=== PATIENT | female | born 1995 | race Caucasian/White ===

== ENCOUNTER 2016-11-03 01:52 | Emergency (ER) | payer BC ==
[2016-11-03] MEDS ORDERED: ONDANSETRON 4 MG/2 ML VIAL IVPB ONE (02:31)
[2016-11-03] MEDS ORDERED: ACETAMINOPHEN 325 MG TABLET (FP) PO ONE (02:31)
[2016-11-03] MEDS ORDERED: FAMOTIDINE 20 MG/50 ML IVPB 50 ML IVPB ONE ×2 (02:31→03:00)
[2016-11-03] MEDS ORDERED: SODIUM CHLORIDE 1,000 ML IV STA (02:31)
[2016-11-03] MEDS ORDERED: MAG HYDROX/AL HYDROX/SIMETH 30 ML UNIT-DOSE CUP PO ONE (02:31)
[2016-11-03 02:39] VITALS: BP 120/98; PULSE 83; TEMP 99.2; BMI 38.4
[2016-11-03] MEDS ORDERED: ONDANSETRON 4 MG/2 ML VIAL ONE (03:00)
[2016-11-03] MEDS ORDERED: ACETAMINOPHEN 325 MG TABLET (FP) ONE (03:00)
[2016-11-03] MEDS ORDERED: MAG HYDROX/AL HYDROX/SIMETH 30 ML UNIT-DOSE CUP ONE (03:00)
[2016-11-03 03:30] LABS: BASOPHIL 0.5 % (0-2.0); EOSINOPHIL 2.8 % (0-4.5); MCH 27.1 pg (25.7-33.7); MCHC 32.8 g/dl (32.0-36.0); MEAN CELL VOLUME 82.8 fl (80-96); NEUTROPHILS 62.2 % (42.8-82.8); PLATELET COUNT 208 K/MM3 (134-434); RDW 14.9 % (11.6-15.6); WHITE BLOOD COUNT 8.7 K/mm3 (4.0-10.0)
[2016-11-03 03:55] LABS: ALBUMIN 3.8 g/dl (3.4-5.0); ALK PHOS 70 U/L (45-117); ANION GAP 8 (8-16); BILIRUBIN,TOTAL 1.1 mg/dL (0.2-1.0); CO2 25 mmol/L (21-32); CREATININE 0.7 mg/dL (0.55-1.02); GLUCOSE,RANDOM 102 mg/dL (74-106); SGPT/ALT 19 U/L (12-78); TOT PROT 7.2 g/dl (6.4-8.2)
[2016-11-03 03:56] LABS: MAGNESIUM 2.1 mg/dL (1.8-2.4); SGOT/AST 22 U/L (15-37)
--- NOTE | 2016-11-03 03:58 | PDOC ---
History of Present Illness - General History Source: Patient Exam Limitations: No Limitations - History of Present Illness Initial Comments: 11/03/16 04:02 The patient is a 20 year old female with a significant past medical history of PCOS and asthma who presents to the ED with complaints of abdominal pain since yesterday. The patient reports generalized intermittent abdominal pain with nausea and multiple episodes of diarrhea. Patient reports taking imodium this morning with slight relief of present symptoms. She states she is unable to eat secondary to abdominal pain. Denies recent sick contact. Denies fever. Denies vomiting or hematochezia. Denies dysuria or changes in urination. Denies chest pain or shortness of breath. Denies any other symptoms. Allergies: Penicillin, Sulfa <Gwendolyn Santacruz - Last Filed: 11/03/16 04:02> - General History Source: Patient Exam Limitations: No Limitations <Igor Dueñas - Last Filed: 11/03/16 06:34> - General Chief Complaint: Pain, Acute Stated Complaint: ABDOMINAL PAIN Time Seen by Provider: 11/03/16 02:15 Past History <Gwendolyn Santacruz - Last Filed: 11/03/16 04:02> - Past Medical History Asthma: Yes Suicide Attempt (Hx): No - Immunization History Immunization Up to Date: Yes - Psycho/Social/Smoking Cessation Hx Anxiety: No Suicidal Ideation: No Smoking History: Never smoked Have you smoked in the past 12 months: No Information on smoking cessation initiated: No Hx Alcohol Use: No Drug/Substance Use Hx: No Substance Use Type: None <Igor Dueñas - Last Filed: 11/03/16 06:34> - Past Medical History Allergies/Adverse Reactions: Allergies Allergy/AdvReac Type Severity Reaction Status Date / Time Penicillins Allergy Verified 11/03/16 02:38 Home Medications: Ambulatory Orders Mag Hydrox/Al Hydrox/Simeth [Mylanta Suspension -] 30 ml PO Q6H PRN #1 bottle Ondansetron HCl [Zofran] 4 mg PO Q8H PRN #10 tablet 11/03/16 Ranitidine HCl [Zantac] 150 mg PO BID PRN #14 tablet 11/03/16 Review of Systems - Review of Systems Able to Perform ROS?: Yes Comments:: 11/03/16 04:03 GENERAL/CONSTITUTIONAL: No fever or chills. No weakness. HEAD, EYES, EARS, NOSE AND THROAT: No change in vision. No ear pain or discharge. No sore throat. CARDIOVASCULAR: No chest pain or shortness of breath. RESPIRATORY: No cough, wheezing, or hemoptysis. GASTROINTESTINAL: + abdominal pain, nausea, diarrhea. No vomiting or constipation. GENITOURINARY: No dysuria, frequency, or change in urination. MUSCULOSKELETAL: No joint or muscle swelling or pain. No neck or back pain. SKIN: No rash NEUROLOGIC: No headache, vertigo, loss of consciousness, or change in strength/ sensation. ENDOCRINE: No increased thirst. No abnormal weight change. HEMATOLOGIC/LYMPHATIC: No anemia, easy bleeding, or history of blood clots. ALLERGIC/IMMUNOLOGIC: No hives or skin allergy. All Other Systems: Reviewed and Negative <Gwendolyn Santacruz - Last Filed: 11/03/16 04:02> *Physical Exam - Vital Signs Last Vital Signs Temp Pulse Resp BP Pulse Ox 99.2 F 83 20 120/98 100 11/03/16 02:38 11/03/16 02:38 11/03/16 02:38 11/03/16 02:38 11/03/16 02:38 - Physical Exam Comments: 11/03/16 04:03 GENERAL: Awake, alert, and fully oriented, in no acute distress HEAD: No signs of trauma EYES: PERRLA, EOMI, sclera anicteric, conjunctiva clear ENT: + dry mucous membranes. Auricles normal inspection, hearing grossly normal , nares patent, oropharynx clear without exudates. NECK: Normal ROM, supple, no lymphadenopathy, JVD, or masses LUNGS: Breath sounds equal, clear to auscultation bilaterally. No wheezes, and no crackles HEART: Regular rate and rhythm, normal S1 and S2, no murmurs, rubs or gallops ABDOMEN: Soft, nontender, normoactive bowel sounds. No guarding, no rebound. No masses EXTREMITIES: Normal range of motion, no edema. No clubbing or cyanosis. No cords, erythema, or tenderness NEUROLOGICAL: Normal speech SKIN: Warm, Dry, normal turgor, no rashes or lesions noted. <Gwendolyn Santacruz - Last Filed: 11/03/16 04:02> - Vital Signs Last Vital Signs Temp Pulse Resp BP Pulse Ox 99.2 F 83 20 120/98 100 11/03/16 02:38 11/03/16 02:38 11/03/16 02:38 11/03/16 02:38 11/03/16 02:38 <Igor Dueñas - Last Filed: 11/03/16 06:34> ED Treatment Course - LABORATORY CBC & Chemistry Diagram: 11/03/16 03:12 11/03/16 03:12 - ADDITIONAL ORDERS Additional order review: Laboratory Results 11/03/16 03:12 Sodium 139 Potassium 4.2 Chloride 106 Carbon Dioxide 25 Anion Gap 8 BUN 9 Creatinine 0.7 Creat Clearance w eGFR > 60 Random Glucose 102 D Calcium 9.0 Magnesium 2.1 Total Bilirubin 1.1 H D AST 22 D ALT 19 D Alkaline Phosphatase 70 Total Protein 7.2 Albumin 3.8 Lipase 105 11/03/16 03:12 RBC 4.67 MCV 82.8 MCHC 32.8 RDW 14.9 MPV 10.0 Neutrophils % 62.2 Lymphocytes % 27.1 Monocytes % 7.4 Eosinophils % 2.8 D Basophils % 0.5 - Medications Given in the ED: ED Medications Discontinued Medications Generic Name Dose Route Start Last Admin Trade Name Freq PRN Reason Stop Dose Admin Acetaminophen 650 mg 11/03/16 02:31 11/03/16 02:40 Tylenol - PO 11/03/16 02:32 650 mg ONCE ONE Administration Al Hydroxide/Mg Hydroxide 30 ml 11/03/16 02:31 11/03/16 02:40 Mylanta Oral Suspension - PO 11/03/16 02:32 30 ml ONCE ONE Administration Famotidine/Sodium Chloride 50 mls @ 100 mls/hr 11/03/16 02:31 11/03/16 02:40 Pepcid 20 Mg Premixed Ivpb - IVPB 11/03/16 03:00 100 mls/hr ONCE ONE Administration Sodium Chloride 1,000 mls @ 1,000 mls/hr 11/03/16 02:31 11/03/16 03:51 Normal Saline - IV 11/03/16 03:30 1,000 mls/hr ASDIR STA Administration Ondansetron HCl 4 mg 11/03/16 02:31 11/03/16 03:54 Zofran Injection IVPB 11/03/16 02:32 Not Given ONCE ONE <Gwendolyn Santacruz - Last Filed: 11/03/16 04:02> - LABORATORY CBC & Chemistry Diagram: 11/03/16 03:12 11/03/16 03:12 - ADDITIONAL ORDERS Additional order review: 11/03/16 03:12 RBC 4.67 MCV 82.8 MCHC 32.8 RDW 14.9 MPV 10.0 Neutrophils % 62.2 Lymphocytes % 27.1 Monocytes % 7.4 Eosinophils % 2.8 D Basophils % 0.5 <Igor Dueñas - Last Filed: 11/03/16 06:34> Medical Decision Making - Medical Decision Making 11/03/16 03:57 A portion of this note was documented by scribe services under my direction. I have reviewed the details of the note, within reason, and agree with the documentation with the following case summary and management plan written by me. Patient treated in the ED. Nursing notes are reviewed and incorporated into the medical decision-making. Vital signs reviewed. Peripheral IV access obtained by the nurse, laboratory studies are drawn and sent, reviewed and interpreted by myself. Vital Signs Temp Pulse Resp BP Pulse Ox 99.2 F 83 20 120/98 100 11/03/16 02:38 11/03/16 02:38 11/03/16 02:38 11/03/16 02:38 11/03/16 02:38 20-year-old female with history of PCO as, asthma, obesity presents immersed department with nausea, vomiting, diarrhea and abdominal cramping. Patient reports that since yesterday she had these persistent symptoms and decreased appetite. No fevers. Patient's abdomen is soft at this time. I suspect this is gastroenteritis. Labs , IV fluids symptom control reassess. 11/03/16 06:31 CBC, BMP 11/03/16 03:12 11/03/16 03:12 CMP Sodium 139 mmol/L (136-145) 11/03/16 03:12 Potassium 4.2 mmol/L (3.5-5.1) 11/03/16 03:12 Chloride 106 mmol/L (98-107) 11/03/16 03:12 Carbon Dioxide 25 mmol/L (21-32) 11/03/16 03:12 Anion Gap 8 (8-16) 11/03/16 03:12 BUN 9 mg/dL (7-18) 11/03/16 03:12 Creatinine 0.7 mg/dL (0.55-1.02) 11/03/16 03:12 Creat Clearance w eGFR > 60 (>60) 11/03/16 03:12 Random Glucose 102 mg/dL (74-106) D 11/03/16 03:12 Calcium 9.0 mg/dL (8.5-10.1) 11/03/16 03:12 Magnesium 2.1 mg/dL (1.8-2.4) 11/03/16 03:12 Total Bilirubin 1.1 mg/dL (0.2-1.0) H D 11/03/16 03:12 AST 22 U/L (15-37) D 11/03/16 03:12 ALT 19 U/L (12-78) D 11/03/16 03:12 Alkaline Phosphatase 70 U/L (45-117) 11/03/16 03:12 Total Protein 7.2 g/dl (6.4-8.2) 11/03/16 03:12 Albumin 3.8 g/dl (3.4-5.0) 11/03/16 03:12 Lipase 105 U/L (73-393) 11/03/16 03:12 Urine Test Results Urine Color Yellow 11/03/16 04:15 Urine Appearance Clear 11/03/16 04:15 Urine pH 5.0 (5.0-8.0) 11/03/16 04:15 Urine Protein Negative (NEGATIVE) 11/03/16 04:15 Urine Glucose (UA) Negative (NEGATIVE) 11/03/16 04:15 Urine Ketones Negative (NEGATIVE) 11/03/16 04:15 Urine Blood 1+ (NEGATIVE) H 11/03/16 04:15 Urine Nitrite Negative (NEGATIVE) 11/03/16 04:15 Urine Bilirubin Negative (NEGATIVE) 11/03/16 04:15 Ur Leukocyte Esterase Trace (NEGATIVE) H 11/03/16 04:15 Urine RBC 3 /hpf (0-3) 11/03/16 04:15 Urine WBC 5 /hpf (3-5) 11/03/16 04:15 Ur Epithelial Cells Rare /hpf (FEW) 11/03/16 04:15 Urine Bacteria Rare /hpf (NONE SEEN) 11/03/16 04:15 Urine Mucus Few 11/03/16 04:15 Urine test negative. Patient continued to report severe abdominal pain. Decision was made to CAT scan the patient. CAT scan demonstrates no acute findings. I suspect that this is again likely gastroenteritis. Supportive care. Return precautions given. I discussed the physical exam findings, ancillary test results and final diagnoses with the patient. I answered all of the patient's questions. The patient was satisfied with the care received and felt comfortable with the discharge plan and treatment plan. The patient will call their primary care physician within 24 hours to arrange follow-up and will return to the Emergency Department with any new, persistant or worsening symptoms. <Igor Dueñas - Last Filed: 11/03/16 06:34> *DC/Admit/Observation/Transfer - Attestations Scribe Attestion: 11/03/16 04:03 Documentation prepared by Gwendolyn Santacruz, acting as medical appointment clerk for Igor Dueñas MD <Gwendolyn Santacruz - Last Filed: 11/03/16 04:02> - Discharge Dispostion Admit: No <Igor Dueñas - Last Filed: 11/03/16 06:34> Diagnosis at time of Disposition: Gastroenteritis - Discharge Dispostion Disposition: HOME Condition at time of disposition: Improved - Prescriptions Prescriptions: Mag Hydrox/Al Hydrox/Simeth [Mylanta Suspension -] 30 ml PO Q6H PRN #1 bottle PRN Reason: Abdominal Pain Ranitidine HCl [Zantac] 150 mg PO BID PRN #14 tablet PRN Reason: Abdominal Pain Ondansetron HCl [Zofran] 4 mg PO Q8H PRN #10 tablet PRN Reason: Nausea - Referrals Referrals: Viviane Louie [Primary Care Provider] - - Patient Instructions Printed Discharge Instructions: DI for Viral Gastroenteritis -- Adult Additional Instructions: Your workup including a CAT scan done shows no acute findings. Please drink plenty of fluids and rest. Take the medications as prescribed as needed. He may take 48-72 hours before your symptoms improved. Follow-up with your doctor.
[2016-11-03 04:25] LABS: URINE APPEARANCE CLEAR; URINE BILIRUBIN NEGATIVE (NEGATIVE); URINE COLOR YELLOW; URINE GLUCOSE (UA) NEGATIVE (NEGATIVE); URINE KETONE NEGATIVE (NEGATIVE); URINE NITRITE NEGATIVE (NEGATIVE); URINE PROTEIN NEGATIVE (NEGATIVE); URINE UROBILINOGEN NEGATIVE mg/dL (0.2-1.0)
[2016-11-03 04:26] LABS: URINE BLOOD 1+ (NEGATIVE); URINE LEUK ESTERASE TRACE (NEGATIVE)
[2016-11-03 04:45] LABS: URINE BACTERIA RARE /hpf (NONE SEEN); URINE MUCUS FEW; URINE RBC 3 /hpf (0-3); URINE WBC 5 /hpf (3-5)
== END 2016-11-03 07:23 | disposition home or self-care (01) ==
LOC: JER 01:52
PROC: 3E033GC Introduction of Other Therapeutic Substance into Peripheral Vein, Percutaneous Approach (ICD-10-PCS; principal; 2016-11-03)
PROC: 3E0337Z Introduction of Electrolytic and Water Balance Substance into Peripheral Vein, Percutaneous Approach (ICD-10-PCS; 2016-11-03)
DX: K52.9 Noninfective gastroenteritis and colitis, unspecified (principal); J45.909 Unspecified asthma, uncomplicated
CPT/HCPCS: 36415; 74176-TC; 80053; 81003; 81015; 83690; 83735; 84703; 85025; 87086; 99281-25